=== PATIENT | male | born 1970 | race Caucasian/White ===

== ENCOUNTER → 2017-01-14 | Outpatient (CLI) | payer OTHER ==
[~2017-01-14] MED LIST: AURALGAN 15 ML15 ML OT; CIPRODEX 0.3%-7.5 ML OT; TRAMADOL HCL50 MG PO
== END | disposition home or self-care (01) ==
LOC: MRI 10:00
DX: M48.07 Spinal stenosis, lumbosacral region (principal); M47.896 Other spondylosis, lumbar region; M48.06 Spinal stenosis, lumbar region; M51.26 Other intervertebral disc displacement, lumbar region

== ENCOUNTER → 2017-03-01 | Day surgery (SDC) | payer OTHER ==
[~2017-03-01] VITALS: Ht 182.8 cm; Wt 88.5 kg
[~2017-03-01] MED LIST changes: +GABAPENTIN600 MG PO
--- NOTE | ~2017-03-01 | O ---
[place], [place] OPERATIVE NOTE NAME: ROBERT HAYNES UNIT #: [id number] ROOM: DOCTOR: ANASTACIA SUAZO MD BIRTHDATE: [birth year] DOS: 03/01/2017 GASTROENDOSCOPIC REPORT. HISTORY OF PRESENT ILLNESS: A 46-year-old patient who has presented with blood in stool, to undergo investigation. ALLERGIES: No known medication. FAMILY HISTORY: Noncontributory. PAST MEDICAL HISTORY: Lower back disk. PAST MEDICAL HISTORY: Appendectomy. SOCIAL HISTORY: Smoker and alcohol consumer. PROCEDURE: Today's procedure part of investigation is colonoscopy. PREMEDICATION: Versed and Diprivan. SCOPE: Olympus forward-viewing colonoscope 10L video. REPORT: After putting the patient in the left lateral position and after application of lubricant to the scope, the scope was introduced; thereafter, under direct visualization, advanced through the length of colon without difficulty. Base of the cecum explored, appendiceal orifice identified, and ileocecal valve was defined. No acute pathology was identified. Scope was withdrawn back to the rectum. GI reflection of the scope reveals a small hemorrhoid as the culprit for bleed. Photographic series obtained. Air was suctioned out. The patient was extubated, tolerated procedure well. IMPRESSION: Small hemorrhoid, cause of bleeding. PLAN AND DISCUSSION: Hemorrhoid Preparation-H suppository would suffice management, 1 bedtime for 3 nights together and supportive management in the same way and unless this becomes entirely a clinical concern, and at such a time hemorrhoid band ligation or otherwise. I thank you very much indeed for your kind referral. [place], [place] OPERATIVE NOTE NAME: ROBERT HAYNES UNIT #: [id number] ROOM: DOCTOR: ANASTACIA SUAZO MD BIRTHDATE: [birth year] ANASTACIA SUAZO MD CM:OPRECORD:OPERATIVE NOTE 1414 1449 TIFF SUAZO MD 03/01/17 1448 interface
[2017-03-01 12:07] VITALS: BP 137/81
[2017-03-01 14:10] VITALS: BP 116/74
[2017-03-01 14:25] VITALS: BP 130/79
[2017-03-01 14:40] VITALS: BP 136/74
== END | disposition home or self-care (01) ==
LOC: SDC 02-26 09:30
DX: K64.9 Unspecified hemorrhoids (principal); Z90.49 Acquired absence of other specified parts of digestive tract; F17.210 Nicotine dependence, cigarettes, uncomplicated